=== PATIENT | female | born 1960 | race Two or more races ===

== ENCOUNTER 2017-07-10 04:18 | Emergency (ER) | payer SELFPAY ==
[~2017-07-10] VITALS: Ht 167.6 cm; Wt 68.0 kg
[~2017-07-10 04:18] MED LIST: ASPI-664 PO; BENA20TA48 PO; GLIP-95 PO; MTF1000T PO
[2017-07-10 04:20] VITALS: Ht 167.6 cm; Wt 68.0 kg
== END 2017-07-10 04:54 | disposition left against medical advice (07) ==
LOC: FTE 04:18
DX: Z53.21 Procedure and treatment not carried out due to patient leaving prior to being seen by health care provider (principal)